=== PATIENT | male | born 1975 | race Caucasian/White ===

== ENCOUNTER 2020-01-15 09:23 | Emergency (ER) | payer SELFPAY ==
[~2020-01-15] VITALS: Ht 188 cm; Wt 118.0 kg
[2020-01-15 09:32] VITALS: BP 135/92
[2020-01-15] MEDS ORDERED: MULT1CAP6 PO (09:51)
[2020-01-15] MEDS ORDERED: BUPR300T94 PO (09:51)
[2020-01-15] MEDS ORDERED: AMOXICILLIN/CLAV 875-125MG TABLET ONE (10:18)
[2020-01-15] MEDS ORDERED: AMOXICILLIN/CLAV 875-125MG TABLET PO SCH (10:30)
--- NOTE | 2020-01-15 10:53 | NUR ---
Patient given discharge instructions and they have confirmed that they understand the instructions. Patient ambulatory with steady gait.
== END 2020-01-15 10:54 | disposition home or self-care (01) ==
LOC: ED 10:30
DX: J02.9 Acute pharyngitis, unspecified (principal); K12.2 Cellulitis and abscess of mouth; Z87.891 Personal history of nicotine dependence
CPT/HCPCS: 99283